=== PATIENT | female | born 1960 | race Caucasian/White ===

== ENCOUNTER 2018-10-11 13:14 | Emergency (ER) | payer OTHER ==
[~2018-10-11] VITALS: Ht 162.6 cm; Wt 81.7 kg
[~2018-10-11 13:14] MED LIST: Ketoconazole15 GM; Travatan Z5 ML
== END 2018-10-11 14:45 | disposition home or self-care (01) ==
LOC: ER 13:14
DX: L27.0 Generalized skin eruption due to drugs and medicaments taken internally (principal); T46.7X5A Adverse effect of peripheral vasodilators, initial encounter; T50.995A Adverse effect of other drugs, medicaments and biological substances, initial encounter; Z88.0 Allergy status to penicillin; Z88.2 Allergy status to sulfonamides
CPT/HCPCS: 99283; J1100

== ENCOUNTER 2020-01-21 15:31 | Emergency (ER) | payer SELFPAY ==
[~2020-01-21] VITALS: Ht 167.6 cm; Wt 84.4 kg
[2020-01-21] MEDS ORDERED: Voltaren100 GM TOP (17:39)
== END 2020-01-21 17:54 | disposition home or self-care (01) ==
LOC: ER 15:31
DX: M25.511 Pain in right shoulder (principal); Z88.0 Allergy status to penicillin; Z88.2 Allergy status to sulfonamides; Z87.891 Personal history of nicotine dependence
CPT/HCPCS: 73030; 99283-25

== ENCOUNTER → 2024-05-29 | Outpatient (CLI) | payer OTHER ==
[~2024-05-29] MED LIST changes: +ONDA4ODT MM; +Voltaren100 GM TOP
== END | disposition home or self-care (01) ==
LOC: LAB 18:51 → LAB SHORT 18:51
DX: R30.0 Dysuria (principal)
CPT/HCPCS: 87077; 87086; 87147; 87186

== ENCOUNTER 2025-06-08 07:04 | Day surgery (SDC) | payer OTHER ==
[~2025-06-08] VITALS: Ht 167.6 cm; Wt 81.8 kg
[~2025-06-08 07:04] MED LIST changes: +HYDHCL25
[2025-06-08] MEDS ORDERED: FISH OIL 1,0001 EA10 (07:17)
[2025-06-08] MEDS ORDERED: TURMERIC500 M2 (07:18)
[2025-06-08] MEDS ORDERED: CALCIUM CITRAT250 MG (07:18)
[2025-06-08] MEDS ORDERED: [UNRECOGNIZED DRUG - CODE] (07:19)
[2025-06-08] MEDS ORDERED: D3 (07:22)
[2025-06-08] MEDS ORDERED: Ondansetron HCl 2 MG / ML 2ML Vial ONE (09:22)
[2025-06-08 09:56] VITALS: BP 103/70
== END 2025-06-08 09:50 | disposition home or self-care (01) ==
LOC: ORSCSDS 07:04
PROVIDERS: Specialist
PROC: 0DJD8ZZ Inspection of Lower Intestinal Tract, Via Natural or Artificial Opening Endoscopic (ICD-10-PCS; principal; 2025-06-08 09:00)
DX: Z12.11 Encounter for screening for malignant neoplasm of colon (principal); R19.5 Other fecal abnormalities; Z86.0101 Personal history of adenomatous and serrated colon polyps; K64.8 Other hemorrhoids; K64.4 Residual hemorrhoidal skin tags; K57.30 Diverticulosis of large intestine without perforation or abscess without bleeding
CPT/HCPCS: J2405; J2704; J7120